=== PATIENT | male | born 1980 | race Caucasian/White ===

== ENCOUNTER 2019-06-27 16:49 | Emergency (ER) | payer MEDICAID, SELFPAY ==
[2019-06-27 16:53] VITALS: BP 126/86; PULSE 111; RESP 16; TEMP 36.9; O2SAT 97
[2019-06-27 16:54] VITALS: BP 125/86; PULSE 111; RESP 16; TEMP 36.9; BMI 36.2
[2019-06-27 17:53] VITALS: RESP 16
--- NOTE | 2019-06-27 17:59 | CM.ED ---
Social Work Set in my Crisis. Crisis already completed assessment in community. Crisis to follow for placement. Patrick DALAL, MARLO
[2019-06-27 21:00] VITALS: RESP 16
--- NOTE | 2019-06-27 21:07 | ED.DCSUM_ITS ---
History of Present Illness Chief Complaint: Mental Health Detail of Chief Complaint: Hallucinations Informant: Patient, - - Staff from counseling center Narrative: Patient reported he has a history of bipolar disorder and has been off his medication for quite some time. Patient was released from prison 2 days ago. He was seeing his chief knowledge officer today. He apparently had some hallucinations and chief knowledge officer asked about his history of bipolar disorder. Staff in the counseling center evaluated him and felt he needed to be placed. Patient was brought here by police. Past Medical History - Allergies and Home Meds Allergies/Adverse Reactions: Allergies No Known Allergies Allergy (Verified 06/27/19 16:59) Primary Care Physician: Care Physician,No Primary [Primary Care Provider] - Prior records reviewed: Yes Past Medical History: - - Reviewed Review of Systems General: Denies: Chills, Fever Eyes: Denies: Visual changes - bilaterally ENT: Denies: Bilateral ear pain Cardiovascular: Denies: Chest pain Respiratory: Denies: Dyspnea, Cough Gastrointestinal: Denies: Abdominal pain Musculoskeletal: Denies: Back pain, Extremity Pain Skin: Denies: Rash Neurological: Denies: Headache Psych: Denies: Suicidal thoughts Physical Exam Vital Signs/Narrative: Vital Signs Resp 06/27/19 17:53 16 Inital Vital Signs reviewed: Yes General: Well nourished, Well developed ENT: Moist mucous membranes Neck: Supple Cardiovascular: Regular rate, Regular rhythm Respiratory: No distress, CTA bilaterally Abdomen: Soft, Nontender Skin: Normal color Neurological: Alert, Oriented x3 Psychological: - - Patient upset about being here in the emergency room. He is cooperative and answers my questions appropriately. He denies suicidal homicidal ideation currently. Diagnostic/Tx/Re-eval Laboratory Results 06/27/19 06/27/19 06/27/19 22:39 22:39 22:39 WBC 8.8 RBC 5.67 Hgb 17.3 H Hct 48.8 MCV 86.1 MCH 30.5 MCHC 35.5 RDW Std Deviation 37.1 RDW Coeff of Hardeep 11.9 Plt Count 226 MPV 11.1 Immature Gran % (Auto) 0.200 Neut % (Auto) 48.6 Lymph % (Auto) 35.5 Riley % (Auto) 12.7 H Eos % (Auto) 2.3 Baso % (Auto) 0.7 Absolute Neuts (auto) 4.3 Absolute Lymphs (auto) 3.13 Nucleated RBC % 0 Sodium 139 Potassium 3.7 Chloride 109 H Carbon Dioxide 24.0 Anion Gap 6 BUN 18 Creatinine 0.88 Estim Creat Clear Calc 122.41 Est GFR (MDRD) Af Amer 124 Est GFR (MDRD) Non-Af 103 BUN/Creatinine Ratio 20.4 H Glucose 99 Calcium 9.2 Ethyl Alcohol 5.0 - Medical Decision Making Patient was seen and evaluated by crisis. Patient initially was refusing to provide us with blood or urine sample. After discussion with our health resources officer patient did agree to testing. At this time we are waiting urinalysis. Crisis staff will be working on placement. Patient be signed out to oncoming physician. ED Disposition - Plan for ED Patient: Disposition: Psychiatric Hospital or Unit Diagnosis: Jyoti Referrals: Care Physician,No Primary [Primary Care Provider] -
--- NOTE | 2019-06-27 21:14 | ED.RN ---
THIS NURSE ATTEMPTED TO OBTAIN LABS AND URINE, PT REFUSED.DR. PASTOR INFORMED OF SAME.
[2019-06-27 22:51] LABS: Absolute Lymphocyte Count 3.13 X10^3/uL (0.83-4.51); Absolute Neutrophil Count 4.3 X10^3/uL (2.0-7.7); Basophil# 0.06 X10^3/uL; Basophil% 0.7 % (0-1); Eosinophils% 2.3 % (0-5); Hematocrit 48.8 % (40-54); Hemoglobin 17.3 g/dL (13.0-16.5); Lymphocyte # 3.13 X10^3/ul (4.0); Lymphocyte % 35.5 % (19-41); Mean Corp Hgb Conc 35.5 g/dL (32-36); Mean Corpuscular Hgb 30.5 pg (27.0-32.0); Mean Corpuscular Volume 86.1 fL (80-94); Mean Platelet Vol. 11.1 fl (6.2-12.0); Monocyte# 1.12 X10^3/uL; Monocyte% 12.7 % (0-10); NRBC Flagged by Analyzer 0 % (0-5); Neutrophil # 4.28 X10^3/uL (2.7-7.7); Neutrophil % 48.6 % (47-70); Platelet Count 226 K/mm3 (150-450); RBC Distribution Width CV 11.9 % (11.6-14.6); RBC Distribution Width SD 37.1 fl (35.1-43.9); Red Blood Count 5.67 M/mm3 (4.6-6.2); White Blood Count 8.8 K/mm3 (4.4-11.0)
[2019-06-27 23:08] LABS: Anion Gap 6 (5-15); BUN 18 mg/dL (7-18); BUN/Creat Ratio 20.4 RATIO (10-20); Calcium,Total 9.2 mg/dL (8.5-10.1); Chloride 109 mmol/L (98-107); Creatinine, Serum 0.88 mg/dL (0.70-1.30); EST Glomerular Filtration Rate 103 mL/min (>60); Est Glom Filt Rate - Afr Amer 124 mL/min (>60); Estimated Creatinine Clearance 122.41 ml/min; Glucose 99 mg/dL (74-106); Potassium 3.7 mmol/L (3.5-5.1); Sodium Level 139 mmol/L (136-145)
[2019-06-27 23:44] VITALS: BP 140/80; PULSE 64; RESP 16
[2019-06-28] VITALS: RESP 18
[2019-06-28 02:00] VITALS: PULSE 89; RESP 14; O2SAT 99
[2019-06-28 04:57] VITALS: PULSE 87; RESP 16; O2SAT 99
--- NOTE | 2019-06-28 05:15 | ED.RN ---
ACCEPTED AT [facility]
[2019-06-28 06:45] VITALS: BP 140/89; PULSE 96; RESP 18; O2SAT 96
[2019-06-28 09:27] LABS: Amphetamine Urine VISTA POSITIVE (<1000 ng/mL); Barbiturate Urine VISTA NEGATIVE (< 200 ng/mL); Benzodiazepine Urine VISTA NEGATIVE (< 200 ng/mL); Cocaine Urine VISTA NEGATIVE (< 300 ng/mL); Ecstacy Urine VISTA NEGATIVE (< 500 ng/mL); Methadone Urine VISTA NEGATIVE (< 300 ng/mL); PCP Urine VISTA NEGATIVE (< 25 ng/mL); THC Urine VISTA NEGATIVE (< 50 ng/mL); Vista UDS pH Range 5
[2019-06-28 10:18] VITALS: RESP 18
== END 2019-06-28 10:23 ==
PROVIDERS: Emergency Provider Emergency Medicine
DX: F30.9 Manic episode, unspecified (principal)
CPT/HCPCS: 80048; 80307; 80320; 85025; 99284; G0480